=== PATIENT | male | born 1945 | race Caucasian/White ===

== ENCOUNTER → 2018-02-27 16:50 | Outpatient (CLI) | payer MEDICARE ==
[2014-10-08 08:52] VITALS: BMI 28.7
[~2018-02-27 16:50] MED LIST: ALDACTONE25 MG PO; ALTACE5 MG PO; BAYER CHEWABLE81 MG PO; BETAPACE 80 MG80 MG PO; COREG12.5 MG PO; COREG25 MG PO; GLIPIZIDE10 MG PO; GLUCOPHAGE1000 MG PO; IMDUR30 MG PO; IMDUR60 MG PO; JANUVIA100 MG PO; LANOXIN125 MCG PO; LANTUS SOL100 UNIT/1 SQ; LASIX20 MG PO; LASIX40 MG PO; LIPITOR80 MG PO; NIASPAN500 MG PO; NIZORAL 2 % CRE15 GM TP; PLAVIX75 MG PO; PREVACID30 MG PO; PRILOSEC20 MG PO; TRICOR145 MG PO; XARELTO20 MG
[2018-02-27 19:03] LABS: ANION GAP 12.9 mmol/L (8-16); CALCIUM 8.8 mg/dL (8.5-10.1); CARBON DIOXIDE 28.4 mmol/L (21.0-32.0); CREATININE - SERUM 1.4 mg/dL (0.6-1.3); DIGOXIN 0.54 ng/mL (0.90-2.00); POTASSIUM - SERUM 4.3 mmol/L (3.5-5.1)
== END | disposition home or self-care (01) ==
LOC: D.LABREF 16:50
PROVIDERS: Nurse Practitioner Adult Health
DX: I10 Essential (primary) hypertension (principal)

== ENCOUNTER 2019-05-06 15:02 | Emergency (ER) | payer MEDICARE, MEDICAID ==
[~2019-05-06] VITALS: Ht 177.8 cm; Wt 84.1 kg
[2019-05-06 15:11] VITALS: Ht 177.8 cm; Wt 84.1 kg
[2019-05-06] MEDS ORDERED: LEVEMIR FL100 UNIT/1 SC (15:15)
[2019-05-06] MEDS ORDERED: INSULIN ASPART (15:16)
[2019-05-06 15:36] LABS: BASOPHILS 0.3 % (0-2); EOSINOPHILS 5.3 % (0-7); HEMOGLOBIN 14.2 g/dL (13.5-17.5); IMMATURE GRANULOCYTES 0.5 % (0-5); LYMPHOCYTES 22.4 % (15-50); MCH 28.9 pg (26.0-34.0); MCHC 32.3 g/dL (31.0-37.0); MCV 89.6 fL (80.0-100.0); MEAN PLATELET VOLUME 10.3 fL (7.4-10.4); MONOCYTES 6.6 % (2-11); NEUTROPHILS 64.9 % (40-80); PLATELET COUNT 193 10x3/uL (130-400); RBC 4.91 10x6/uL (4.20-6.10); RDW 13.6 % (11.5-14.5); WBC 11.3 10x3/uL (4.8-10.8)
[2019-05-06 15:51] LABS: APPEARANCE CLEAR (CLEAR); BILIRUBIN NEGATIVE (NEGATIVE); COLOR YELLOW (YELLOW); GLUCOSE 1000 mg/dL (NEGATIVE); KETONE NEGATIVE (NEGATIVE); NITRITE NEGATIVE (NEGATIVE); PROTEIN NEGATIVE (NEGATIVE); SPECIFIC GRAVITY 1.015 (1.005-1.020); UROBILINOGEN NORMAL (NORMAL)
[2019-05-06 15:55] LABS: ANION GAP 15.2 mmol/L (8-16); CALCIUM 8.8 mg/dL (8.5-10.1); CREATININE - SERUM 1.3 mg/dL (0.6-1.3); POTASSIUM - SERUM 4.2 mmol/L (3.5-5.1)
[2019-05-06 16:00] LABS: ALBUMIN 4.1 g/dL (3.4-5.0); BILIRUBIN - TOTAL 0.74 mg/dL (0.2-1.3); PROTEIN - SERUM 7.8 g/dL (6.4-8.2)
[2019-05-06] MEDS ORDERED: HYDROCODON-ACE1 EAC7 PO (18:37)
[2019-05-06] MEDS ORDERED: CLEOCIN HCL300 MG PO (18:37)
[2019-05-06 19:00] VITALS: BP 137/85
== END 2019-05-06 19:14 | disposition home or self-care (01) ==
LOC: D.ER 15:02
PROVIDERS: Family Medicine
DX: S01.551A Open bite of lip, initial encounter (principal); W19.XXXA Unspecified fall, initial encounter; E11.9 Type 2 diabetes mellitus without complications; I10 Essential (primary) hypertension; K21.9 Gastro-esophageal reflux disease without esophagitis